=== PATIENT | male | born 1970 | race Caucasian/White ===

== ENCOUNTER 2018-02-21 03:52 | Inpatient (IN) | payer MEDICAID, OTHER ==
[~2018-02-21] VITALS: Ht 175.3 cm; Wt 103.5 kg
[2018-02-21] MEDS ORDERED: MORPHINE SULFATE INJECTION 1 ML ONE ×2 (04:28→06:16)
[2018-02-21] MEDS ORDERED: SODIUM CHLORIDE 0.9% 1,000 ML IV ONE (04:30)
[2018-02-21] MEDS ORDERED: MORPHINE SULFATE 4 MG/ML SYR/VIAL IV ONE ×2 (04:30→06:15)
[2018-02-21] MEDS ORDERED: ONDANSETRON HCL 4 MG/2 ML VIAL IV ONE ×2 (04:30→06:15)
[2018-02-21 05:04] LABS: Basophils # (auto) 0.1 uL; Basophils % (auto) 0.9 % (0.0-2.0); Eosinophils # (auto) 0 uL; Eosinophils % (auto) 0.6 % (0.0-7.0); Hemoglobin 13.6 g/dL (13.5-17.5); Lymphocytes # (auto) 1.1 uL; Lymphocytes % (auto) 14.1 % (10.0-50.0); Monocytes # (auto) 0.4 uL; Monocytes % (auto) 4.5 % (0.0-12.0); Neutrophils # (auto) 6.3 uL; Neutrophils % (auto) 79.9 % (37.0-80.0); Nucleated Red Blood Cells % 0.1 %; Platelet Count (auto) 315 10^3/uL (140-450); Red Blood Cells 4.26 10^6/uL (4.5-5.90); Red Cell Distribution Width 13.7 % (11.8-14.3); White Blood Cell 7.9 10^3/uL (4.4-10.8)
[2018-02-21 05:15] LABS: Prothrombin Time 10.7 sec (9.27-12.13)
[2018-02-21 05:24] LABS: Alanine Aminotransferase 37 U/L (16-61); Albumin 3.8 g/dL (3.4-5.0); Alkaline Phosphatase 81 U/L (45-117); Amylase 49 U/L (25-115); Anion Gap 11 (5-15); Aspartate Aminotransferase 14 U/L (15-37); BUN/Creatinine Ratio 14.1; Bilirubin, Total 0.5 mg/dL (0.2-1.0); Blood Urea Nitrogen 11 mg/dL (7-18); Calcium 8.9 mg/dL (8.5-10.1); Carbon Dioxide 22 mmol/L (21-32); Chloride 104 mmol/L (98-107); GFR African American 138 mL/min; GFR Non-African American 114 mL/min; Glucose 215 mg/dL (74-106); Lipase 143 U/L (73-393); Magnesium 1.8 mg/dL (1.6-2.6); Potassium 3.5 mmol/L (3.5-5.1); Sodium 137 mmol/L (136-145); Total Protein 7.6 g/dL (6.4-8.2)
[2018-02-21 07:14] LABS: Urine WBC None Seen /hpf (0 - 3)
[2018-02-21 07:33] LABS: Urine Bacteria NONE SEEN /hpf (None Seen); Urine Blood Negative /uL (Negative); Urine Mucus FEW (None Seen); Urine Specific Gravity 1.021 (1.001-1.035)
[2018-02-21] MEDS ORDERED: LABETALOL HCL 5 MG/ML ML 20ML VIAL IV ONE (08:30)
[2018-02-21] MEDS ORDERED: ACETAMINOPHEN 325 MG TAB PO PRN (09:00)
[2018-02-21] MEDS ORDERED: TEMAZEPAM 15 MG CAP PO PRN (09:00)
[2018-02-21] MEDS ORDERED: cloNIDine HCL 0.1 MG TAB PO PRN (09:00)
[2018-02-21] MEDS ORDERED: NITROGLYCERIN 0.4 MG SL TAB SL PRN (09:00)
[2018-02-21] MEDS ORDERED: MORPHINE SULFATE 8mg/ml INJ SDV IV PRN (09:00)
[2018-02-21] MEDS ORDERED: DEXTROSE (50%) 50ML SYRG IV PRN (09:00)
[2018-02-21] MEDS: ONDANSETRON HCL 4 MG/2 ML VIAL IV PRN ×2 (09:13→14:59)
[2018-02-21] MEDS: DULoxetine HCL 30 MG CAP PO SCH (09:13)
[2018-02-21] MEDS: MULTIPLE VITAMIN TAB PO SCH (09:13)
[2018-02-21] MEDS: SODIUM CHLORIDE 0.9% 1,000 ML IV SCH ×2 (09:15→20:47)
[2018-02-21] MEDS: MORPHINE SULFATE 8mg/ml INJ SDV IV PRN ×3 (09:15→20:47)
[2018-02-21] MEDS ORDERED: PANTOPRAZOLE 40 MG/10 ML VIAL IV SCH (10:00)
[2018-02-21] MEDS: ACCU-CHEK COMFORT CURVE STRIP VI SCH ×3 (11:47→21:15)
[2018-02-21] MEDS: InsuLIN REG 1unit/0.01ml Soln (100units/ml) SC SCH ×3 (11:50→22:49)
[2018-02-21] MEDS ORDERED: PROMETHAZINE HCL 25 MG/ML 1ML ONE (12:15)
[2018-02-21] MEDS: PROMETHAZINE HCL 25 MG/ML 1ML IV PRN ×2 (12:46→20:47)
[2018-02-21 17:10] VITALS: BP 189/98
[2018-02-21 20:00] VITALS: BP 150/82
[2018-02-21] MEDS: PANTOPRAZOLE 40 MG/10 ML VIAL IV SCH (21:15)
[2018-02-21 22:00] VITALS: BP 150/82
[2018-02-21] MEDS ORDERED: FAMOTIDINE (10MG/ML) 2ML VL IV SCH (22:00)
[2018-02-22] VITALS (7 sets, daily range): BP systolic 136–154; BP diastolic 48–99
[2018-02-22] MEDS: MORPHINE SULFATE 8mg/ml INJ SDV IV PRN ×4 (02:13→21:22)
[2018-02-22] MEDS: ONDANSETRON HCL 4 MG/2 ML VIAL IV PRN ×4 (02:13→16:13)
[2018-02-22] MEDS: SODIUM CHLORIDE 0.9% 1,000 ML IV SCH ×3 (04:43→18:45)
[2018-02-22 06:49] LABS: Basophils # (auto) 0 uL; Basophils % (auto) 0.4 % (0.0-2.0); Eosinophils # (auto) 0.1 uL; Eosinophils % (auto) 1.2 % (0.0-7.0); Hematocrit 38.2 % (41.0-53.0); Hemoglobin 13.1 g/dL (13.5-17.5); Lymphocytes # (auto) 2.3 uL; Lymphocytes % (auto) 25.6 % (10.0-50.0); Mean Corpuscular Hemoglobin 32.2 pg (28.0-32.0); Mean Corpuscular Hgb Conc. 34.2 g/dL (32.0-36.0); Mean Corpuscular Volume 94.2 fL (80.0-100.0); Monocytes # (auto) 0.6 uL; Monocytes % (auto) 6.9 % (0.0-12.0); Neutrophils # (auto) 5.8 uL; Neutrophils % (auto) 65.9 % (37.0-80.0); Nucleated Red Blood Cells % 0.1 %; Platelet Count (auto) 292 10^3/uL (140-450); Red Blood Cells 4.05 10^6/uL (4.5-5.90); Red Cell Distribution Width 13.7 % (11.8-14.3); White Blood Cell 8.8 10^3/uL (4.4-10.8)
[2018-02-22 06:58] LABS: Potassium 3.1 mmol/L (3.5-5.1)
[2018-02-22] MEDS: ACCU-CHEK COMFORT CURVE STRIP VI SCH ×4 (06:59→21:22)
[2018-02-22] MEDS: InsuLIN REG 1unit/0.01ml Soln (100units/ml) SC SCH ×4 (06:59→21:33)
[2018-02-22 07:15] LABS: Albumin 3.2 g/dL (3.4-5.0); BUN/Creatinine Ratio 15.9; Bilirubin, Total 0.6 mg/dL (0.2-1.0); Calcium 8.3 mg/dL (8.5-10.1); Total Protein 6.9 g/dL (6.4-8.2)
[2018-02-22] MEDS ORDERED: IOHEXOL 300 MG/ML 100ML BOTTLE IJ ONE (09:48)
[2018-02-22] MEDS: DULoxetine HCL 30 MG CAP PO SCH (10:42)
[2018-02-22] MEDS: PANTOPRAZOLE 40 MG/10 ML VIAL IV SCH ×2 (10:42→21:22)
[2018-02-22] MEDS: MULTIPLE VITAMIN TAB PO SCH (10:42)
[2018-02-22] MEDS: POTASSIUM CHL 20MEQ/100ML 100 ML IV SCH ×2 (10:42→12:35)
[2018-02-22] MEDS: HYDROcodone-ACET 5/325MG TAB PO PRN ×2 (16:14→23:29)
[2018-02-23] MEDS: SODIUM CHLORIDE 0.9% 1,000 ML IV SCH ×2 (02:51→10:46)
[2018-02-23 05:15] VITALS: BP 142/86
[2018-02-23] MEDS: ACCU-CHEK COMFORT CURVE STRIP VI SCH ×2 (05:55→11:25)
[2018-02-23] MEDS: InsuLIN REG 1unit/0.01ml Soln (100units/ml) SC SCH ×2 (05:55→11:26)
[2018-02-23] MEDS: HYDROcodone-ACET 5/325MG TAB PO PRN ×2 (05:56→11:17)
[2018-02-23 06:37] LABS: Basophils # (auto) 0.1 uL; Basophils % (auto) 0.7 % (0.0-2.0); Eosinophils # (auto) 0.3 uL; Eosinophils % (auto) 3.7 % (0.0-7.0); Hematocrit 37.1 % (41.0-53.0); Hemoglobin 12.8 g/dL (13.5-17.5); Lymphocytes # (auto) 1.9 uL; Lymphocytes % (auto) 27.2 % (10.0-50.0); Mean Corpuscular Hemoglobin 32.2 pg (28.0-32.0); Mean Corpuscular Hgb Conc. 34.4 g/dL (32.0-36.0); Mean Corpuscular Volume 93.7 fL (80.0-100.0); Monocytes # (auto) 0.5 uL; Monocytes % (auto) 7.8 % (0.0-12.0); Neutrophils # (auto) 4.2 uL; Neutrophils % (auto) 60.6 % (37.0-80.0); Platelet Count (auto) 293 10^3/uL (140-450); Red Blood Cells 3.96 10^6/uL (4.5-5.90); Red Cell Distribution Width 13.6 % (11.8-14.3)
[2018-02-23 07:07] LABS: Albumin 3.3 g/dL (3.4-5.0); BUN/Creatinine Ratio 11.3; Bilirubin, Total 0.5 mg/dL (0.2-1.0); Calcium 8.2 mg/dL (8.5-10.1); Potassium 3.3 mmol/L (3.5-5.1); Total Protein 6.5 g/dL (6.4-8.2)
[2018-02-23 07:26] VITALS: BP 159/93
[2018-02-23 07:58] VITALS: BP 159/93
[2018-02-23] MEDS: PANTOPRAZOLE 40 MG/10 ML VIAL IV SCH (09:39)
[2018-02-23] MEDS: MULTIPLE VITAMIN TAB PO SCH (09:39)
[2018-02-23] MEDS: DULoxetine HCL 30 MG CAP PO SCH (09:39)
[2018-02-23] MEDS: POTASSIUM CHL 20MEQ/100ML 100 ML IV SCH ×2 (09:40→11:57)
[2018-02-23] MEDS: ONDANSETRON HCL 4 MG/2 ML VIAL IV PRN (11:18)
[2018-02-23 13:00] VITALS: BP 137/102
== END 2018-02-23 14:44 | disposition home or self-care (01) | DRG 241 ==
LOC: EDBD 03:52 → ER 03:52 → EDUNIT# 03:52 → TELE 03:53 → TELE-CENTR 13:20
PROVIDERS: ADMIT Internal Medicine; ATTEND Internal Medicine
DX: K29.71 Gastritis, unspecified, with bleeding (principal); E11.65 Type 2 diabetes mellitus with hyperglycemia; I10 Essential (primary) hypertension; K21.9 Gastro-esophageal reflux disease without esophagitis; E66.01 Morbid (severe) obesity due to excess calories; I25.2 Old myocardial infarction; Z80.8 Family history of malignant neoplasm of other organs or systems; E86.0 Dehydration; K57.30 Diverticulosis of large intestine without perforation or abscess without bleeding; I25.10 Atherosclerotic heart disease of native coronary artery without angina pectoris; I70.0 Atherosclerosis of aorta; Z53.29 Procedure and treatment not carried out because of patient's decision for other reasons; R10.9 Unspecified abdominal pain; D18.03 Hemangioma of intra-abdominal structures; F17.210 Nicotine dependence, cigarettes, uncomplicated; Z68.33 Body mass index [BMI] 33.0-33.9, adult; E44.1 Mild protein-calorie malnutrition; E88.09 Other disorders of plasma-protein metabolism, not elsewhere classified
CPT/HCPCS: 36415; 74176; 74177; 76705; 80053; 81001; 82150; 82962; 83036; 83690; 83735; 84443; 84484; 85025; 85610; 85730; 93005; 93306; 96361; 96374; 96375; 96376; C9113; J1815; J2270; J2405; J3480

== ENCOUNTER 2019-08-11 05:57 | Inpatient (IN) | payer MEDICAID ==
[~2019-08-11] VITALS: Ht 170.2 cm; Wt 88.2 kg
[2019-08-11] MEDS ORDERED: SODIUM CHLORIDE 0.9% 1,000 ML IV ONE (06:51)
[2019-08-11] MEDS ORDERED: SODIUM CHLORIDE 0.9% 500 ML IVB ONE (06:51)
[2019-08-11] MEDS ORDERED: HYDROmorphone HCL 2 MG/ML VL IV ONE (07:00)
[2019-08-11] MEDS ORDERED: PROMETHAZINE HCL 25 MG/ML 1ML IV PRN (07:00)
[2019-08-11 07:34] LABS: Basophils # (auto) 0 uL; Basophils % (auto) 0.3 % (0.0-2.0); Eosinophils # (auto) 0 uL; Hematocrit 42.1 % (41.0-53.0); Hemoglobin 14.1 g/dL (13.5-17.5); Lymphocytes # (auto) 1.7 uL; Lymphocytes % (auto) 16.6 % (10.0-50.0); Mean Corpuscular Hemoglobin 30.9 pg (28.0-32.0); Mean Corpuscular Hgb Conc. 33.4 g/dL (32.0-36.0); Mean Corpuscular Volume 92.5 fL (80.0-100.0); Monocytes # (auto) 0.5 uL; Monocytes % (auto) 4.4 % (0.0-12.0); Neutrophils # (auto) 8.2 uL; Neutrophils % (auto) 78.7 % (37.0-80.0); Nucleated Red Blood Cells % 0.1 %; Platelet Count (auto) 355 10^3/uL (140-450); Red Blood Cells 4.56 10^6/uL (4.5-5.90); Red Cell Distribution Width 13.8 % (11.8-14.3); White Blood Cell 10.4 10^3/uL (4.4-10.8)
[2019-08-11 07:43] LABS: Albumin 4.1 g/dL (3.4-5.0); Calcium 9.1 mg/dL (8.5-10.1); Potassium 3.3 mmol/L (3.5-5.1)
[2019-08-11 07:46] LABS: BUN/Creatinine Ratio 11.9; Bilirubin, Total 0.6 mg/dL (0.2-1.0); Total Protein 8.1 g/dL (6.4-8.2)
[2019-08-11 07:47] LABS: Magnesium 1.8 mg/dL (1.6-2.6)
[2019-08-11] MEDS ORDERED: MORPHINE SULF INJ 2 MG/ML SYRINGE 1ML IV PRN ×2 (10:30)
[2019-08-11] MEDS ORDERED: NITROGLYCERIN 0.4 MG SL TAB SL PRN (10:30)
[2019-08-11] MEDS ORDERED: DEXTROSE (50%) 50ML SYRG IV PRN (11:15)
[2019-08-11] MEDS: InsuLIN REG 1unit/0.01ml Soln (100units/ml) SC SCH ×3 (12:02→22:00)
[2019-08-11] MEDS: ACCU-CHEK COMFORT CURVE STRIP VI SCH ×3 (12:02→22:56)
[2019-08-11] MEDS: D5W/ SOD CHL 0.9%/KCL 20MEQ 1,000 ML IV SCH ×2 (12:03→20:30)
--- NOTE | 2019-08-11 12:37 | NUR ---
Telemetry admit from ER PALLAVIEMELY PEREZ admitted to Telemetry unit after SBAR received. Patient oriented to Aurora Bazzi primary RN, unit, room, bed, and unit policies regarding patient care and visiting hours. Patient now on continuous telemetry monitoring, tele box #56 and telemetry reading on arrival to unit is SR 69 bpm. Patient weighed by bed scale and encouraged to call if they need something. All questions and concerns addressed, patient verbalized understanding. Instructed patient on POC, fall precautions and to call for assistance as needed. Patient verbalized understanding. Fall precautions in place with bed in lowest locked position with x2 call light within reach. Will continue to monitor q1hr & PRN.
[2019-08-11] MEDS: ONDANSETRON HCL 4 MG/2 ML VIAL IV PRN ×2 (12:40→20:49)
[2019-08-11] MEDS ORDERED: TIZA4TAB9 PO (13:01)
[2019-08-11] MEDS ORDERED: IBUP800T24 PO (13:01)
[2019-08-11] MEDS ORDERED: ALPR1TAB2 PO (13:01)
[2019-08-11] MEDS ORDERED: MIRT1TAB38 PO (13:01)
[2019-08-11] MEDS ORDERED: GABA-339 PO (13:01)
[2019-08-11] MEDS ORDERED: PERCOT PO (13:01)
[2019-08-11] MEDS ORDERED: METH-532 PO (13:01)
[2019-08-11] MEDS ORDERED: OMEP20TA PO (13:01)
--- NOTE | 2019-08-11 13:22 | NUR ---
RE: pain management Patient reports ordered PRN pain medication is not managing his pain adequately. Notified Eusebio Lovett verbalized understanding. Order received and read back to verify.
[2019-08-11 13:53] VITALS: BP 164/103
[2019-08-11] MEDS: HYDROmorphone HCL 2 MG/ML VL IV PRN ×3 (13:53→22:30)
[2019-08-11] MEDS: metroNIDAZOLE 500MG/100ML 100 ML IV SCH ×2 (13:59→22:43)
--- NOTE | 2019-08-11 14:32 | NUR ---
was at bedside - Dr. Young
[2019-08-11] MEDS ORDERED: IOHEXOL 300 MG/ML 100ML BOTTLE IJ ONE (14:44)
--- NOTE | 2019-08-11 14:50 | NUR ---
Patient off unit via wheelchair to radiology Respirations even and unlabored, no distress noted.
[2019-08-11 16:59] VITALS: BP 154/92
--- NOTE | 2019-08-11 18:40 | NUR ---
Closing note Patient resting in bed with even and unlabored respirations, no distress noted. Fall precautions in place with call light within reach.
--- NOTE | 2019-08-11 18:41 | NUR ---
Faxed request for medical record per MD order.
--- NOTE | 2019-08-11 18:50 | NUR ---
Paged hospitalist RE: order for sleeping medication Patient requesting sleeping medication. No PRN sleeping medication ordered at this time. Paged Davin Gonzalez N.P., to notify.
--- NOTE | 2019-08-11 19:12 | NUR ---
Care endorsed to IMANI Adame.
--- NOTE | 2019-08-11 19:40 | NUR ---
Opening Shift Note Assumed care of patient, awake, AAOx4 and ambulatory. On room air. No S/S of distress/SOB. Bed in lowest locked position, side rails up x2, call light within reach. Instructed on POC and to call for assist PRN, will continue to monitor for changes Q1hr and PRN.
[2019-08-11 20:00] VITALS: BP 166/92
[2019-08-11 22:00] VITALS: BP 166/92
--- NOTE | 2019-08-11 22:30 | NUR ---
PATIENT REQUESTING SLEEPING PILL JULIANNE ALVA MD. RETURNED CALL, RECEIVED NEW ORDER FOR TEMAZEPAM 15MG PO PRN/HS. RBO AND VERIFIED. WILL CARRY OUT ORDERS AND CONTINUE CARE.
[2019-08-11] MEDS: DOCUSATE SOD 100 MG CAP PO SCH (22:43)
[2019-08-12] VITALS (7 sets, daily range): BP systolic 141–166; BP diastolic 83–97
[2019-08-12] MEDS: HYDROmorphone HCL 2 MG/ML VL IV PRN ×5 (04:04→21:45)
[2019-08-12] MEDS: ONDANSETRON HCL 4 MG/2 ML VIAL IV PRN ×4 (04:05→21:45)
[2019-08-12 05:34] LABS: Basophils # (auto) 0.1 uL; Basophils % (auto) 0.7 % (0.0-2.0); Eosinophils # (auto) 0.1 uL; Eosinophils % (auto) 1.3 % (0.0-7.0); Hematocrit 35.6 % (41.0-53.0); Hemoglobin 12.5 g/dL (13.5-17.5); Lymphocytes # (auto) 2.5 uL; Lymphocytes % (auto) 34.5 % (10.0-50.0); Mean Corpuscular Hemoglobin 31.4 pg (28.0-32.0); Mean Corpuscular Volume 89.8 fL (80.0-100.0); Monocytes # (auto) 0.5 uL; Monocytes % (auto) 6.4 % (0.0-12.0); Neutrophils # (auto) 4.1 uL; Neutrophils % (auto) 57.1 % (37.0-80.0); Nucleated Red Blood Cells % 0.1 %; Platelet Count (auto) 304 10^3/uL (140-450); Red Blood Cells 3.97 10^6/uL (4.5-5.90); Red Cell Distribution Width 13.6 % (11.8-14.3); White Blood Cell 7.2 10^3/uL (4.4-10.8)
[2019-08-12 05:45] LABS: INR 1.09 (0.9-1.15); Partial Thromboplastin Time 30.9 sec (23.64-32.05)
[2019-08-12 05:50] LABS: Potassium 3.4 mmol/L (3.5-5.1)
[2019-08-12 06:02] LABS: Albumin 3.3 g/dL (3.4-5.0); BUN/Creatinine Ratio 10.6; Bilirubin, Total 0.6 mg/dL (0.2-1.0); Calcium 8.2 mg/dL (8.5-10.1); Total Protein 6.6 g/dL (6.4-8.2)
[2019-08-12] MEDS: metroNIDAZOLE 500MG/100ML 100 ML IV SCH ×3 (06:20→22:02)
[2019-08-12] MEDS: D5W/ SOD CHL 0.9%/KCL 20MEQ 1,000 ML IV SCH ×2 (06:21→13:17)
[2019-08-12] MEDS: InsuLIN REG 1unit/0.01ml Soln (100units/ml) SC SCH ×4 (06:21→22:00)
[2019-08-12] MEDS: ACCU-CHEK COMFORT CURVE STRIP VI SCH ×4 (06:21→22:03)
[2019-08-12] MEDS: DOCUSATE SOD 100 MG CAP PO SCH ×2 (10:08→22:02)
[2019-08-12] MEDS: LEVOFLOXACIN 500MG 100 ML IV SCH (10:09)
[2019-08-12] MEDS ORDERED: POTASSIUM CHL 20 Meq TABLET PO ONE (15:15)
[2019-08-12] MEDS: METHOCARBAMOL 500 MG TAB PO PRN (17:02)
--- NOTE | 2019-08-12 19:40 | NUR ---
Opening Shift Note Assumed care of patient, awake, AAOx4. No S/S of distress/SOB. C/O pain 05/12 to lower back. On room air and ambulatory. Bed in lowest locked position, side rails up x2, call light within reach. Instructed on POC and to call for assist PRN, will continue to monitor for changes Q1hr and PRN.
[2019-08-12] MEDS: TEMAZEPAM 15 MG CAP PO PRN (22:03)
[2019-08-13] VITALS (7 sets, daily range): BP systolic 131–166; BP diastolic 77–99
[2019-08-13] MEDS: HYDROmorphone HCL 2 MG/ML VL IV PRN ×5 (01:45→23:35)
[2019-08-13] MEDS: ONDANSETRON HCL 4 MG/2 ML VIAL IV PRN ×5 (01:45→23:42)
[2019-08-13] MEDS: D5W/ SOD CHL 0.9%/KCL 20MEQ 1,000 ML IV SCH ×3 (02:10→14:13)
[2019-08-13] MEDS: ACCU-CHEK COMFORT CURVE STRIP VI SCH ×4 (06:41→21:13)
[2019-08-13] MEDS: metroNIDAZOLE 500MG/100ML 100 ML IV SCH ×3 (06:41→21:11)
[2019-08-13] MEDS: InsuLIN REG 1unit/0.01ml Soln (100units/ml) SC SCH ×4 (06:42→21:12)
[2019-08-13] MEDS: DOCUSATE SOD 100 MG CAP PO SCH ×2 (10:25→21:11)
[2019-08-13] MEDS: LEVOFLOXACIN 500MG 100 ML IV SCH (10:25)
[2019-08-13] MEDS ORDERED: HYOSCYAMINE SULF 0.125 MG ODT TAB PO PRN (14:00)
--- NOTE | 2019-08-13 20:10 | NUR ---
Rounds Patient awake and alert. No S/S of distress/SOB, denies pain at this time, medicated earlier with norco for back pain. Will continue to monitor changes q1hr and PRN.
--- NOTE | 2019-08-13 22:20 | NUR ---
Rounds Pt ambulating to room walked around unite,gait steady, no sob.
[2019-08-13] MEDS: TEMAZEPAM 15 MG CAP PO PRN (22:57)
[2019-08-14] MEDS: ONDANSETRON HCL 4 MG/2 ML VIAL IV PRN ×4 (03:38→17:03)
[2019-08-14] MEDS: HYDROmorphone HCL 2 MG/ML VL IV PRN ×4 (03:38→17:04)
[2019-08-14] MEDS: D5W/ SOD CHL 0.9%/KCL 20MEQ 1,000 ML IV SCH ×2 (03:50→18:30)
--- NOTE | 2019-08-14 04:42 | NUR ---
IV insertion IV access obtained, via clean sterile technique by inserting 22 gauge catheter at LEFT HAND after 2 attempt(s). IV secured properly. No trauma to site. Patient tolerated well. NOTE:
--- NOTE | 2019-08-14 04:43 | NUR ---
IV removal IV to left ac DC'd due to leaking with clean sterile technique, catheter fully intact. Pressure dressing applied to site. Patient tolerated well. NOTE:
[2019-08-14 05:00] VITALS: BP 150/92
[2019-08-14] MEDS: METHOCARBAMOL 500 MG TAB PO PRN (05:15)
[2019-08-14] MEDS: metroNIDAZOLE 500MG/100ML 100 ML IV SCH ×2 (05:16→14:06)
[2019-08-14] MEDS: ACCU-CHEK COMFORT CURVE STRIP VI SCH ×3 (05:16→17:18)
[2019-08-14] MEDS: InsuLIN REG 1unit/0.01ml Soln (100units/ml) SC SCH ×3 (05:22→17:00)
--- NOTE | 2019-08-14 07:20 | NUR ---
Endorsed care to Nicolas RN Pt resting, comfortable, no distress.
[2019-08-14 08:00] VITALS: BP 144/57
[2019-08-14 08:30] VITALS: BP 146/92
[2019-08-14 09:10] VITALS: BP 144/87
[2019-08-14] MEDS: DOCUSATE SOD 100 MG CAP PO SCH (11:04)
[2019-08-14] MEDS: LEVOFLOXACIN 500MG 100 ML IV SCH (11:04)
--- NOTE | 2019-08-14 11:50 | NUR ---
Nutrition Assessment Notes please see attached link for complete assessment Est. Needs based on ABW (77 kg): 4083-1397 kcal (23-25 kcal/kgBW), 77-84 gms pro (1.0-1.1 gms/kgBW). Will continue to monitor pertinent labs and reassess nutrient need prn Addendum: 08/14/19 at [address] Amended: Links added.
[2019-08-14 16:51] VITALS: BP 147/85
[2019-08-14 17:52] VITALS: BP 146/92
--- NOTE | 2019-08-14 19:47 | NUR ---
Patient Discharged Completed the discharge instruction per protocol. Reviewed the instructions to the patient, he stated he understood and had no questions. He signed the signature page as well as the clothing record. Removed his IV and Telemetry box which was cleaned and returned. The patient was discharged via wheel chair and escorted out through the ER entrance at 1905hrs.
== END 2019-08-14 19:05 | disposition home or self-care (01) ==
LOC: EDBD 05:57 → ER 06:02 → TELE 06:03 → TELE-WESTW 12:41
PROVIDERS: ADMIT Nurse Practitioner Acute Care; ATTEND Internal Medicine
DX: K75.9 Inflammatory liver disease, unspecified (principal); E11.42 Type 2 diabetes mellitus with diabetic polyneuropathy; E66.9 Obesity, unspecified; R16.0 Hepatomegaly, not elsewhere classified; F41.9 Anxiety disorder, unspecified; E87.6 Hypokalemia; M54.9 Dorsalgia, unspecified; K59.00 Constipation, unspecified; G89.4 Chronic pain syndrome; F17.210 Nicotine dependence, cigarettes, uncomplicated; I25.10 Atherosclerotic heart disease of native coronary artery without angina pectoris; K57.30 Diverticulosis of large intestine without perforation or abscess without bleeding; Z95.5 Presence of coronary angioplasty implant and graft; Z79.4 Long term (current) use of insulin; I25.2 Old myocardial infarction; Z79.84 Long term (current) use of oral hypoglycemic drugs; Z68.30 Body mass index [BMI] 30.0-30.9, adult
CPT/HCPCS: 36415; 74176; 74177; 80053; 82150; 82378; 82962; 83036; 83615; 83690; 83735; 84484; 85025; 85610; 85730; 96361; 96374; 96375; G0378; J1815; J1956; J2405; J3490

== ENCOUNTER 2019-09-13 23:42 | Emergency (ER) | payer MEDICAID ==
[~2019-09-13] VITALS: Ht 172.7 cm; Wt 104.3 kg
[~2019-09-13 23:42] MED LIST: ALPR1TAB2 PO; GABA-339 PO; METH-532 PO; MIRT1TAB38 PO; OMEP20TA PO; PERCOT PO; TIZA4TAB9 PO
[2019-09-13 23:45] VITALS: BP 182/87
[2019-09-14 01:42] LABS: Basophils # (auto) 0.1 uL; Basophils % (auto) 0.6 % (0.0-2.0); Eosinophils # (auto) 0 uL; Eosinophils % (auto) 0.1 % (0.0-7.0); Hematocrit 40.4 % (41.0-53.0); Hemoglobin 13.9 g/dL (13.5-17.5); Lymphocytes % (auto) 9.4 % (10.0-50.0); Mean Corpuscular Hemoglobin 30.8 pg (28.0-32.0); Mean Corpuscular Hgb Conc. 34.4 g/dL (32.0-36.0); Mean Corpuscular Volume 89.4 fL (80.0-100.0); Monocytes # (auto) 0.3 uL; Monocytes % (auto) 3.1 % (0.0-12.0); Neutrophils # (auto) 9.3 uL; Neutrophils % (auto) 86.8 % (37.0-80.0); Platelet Count (auto) 501 10^3/uL (140-450); Red Blood Cells 4.52 10^6/uL (4.5-5.90); Red Cell Distribution Width 14.2 % (11.8-14.3); White Blood Cell 10.7 10^3/uL (4.4-10.8)
[2019-09-14 01:56] LABS: Alanine Aminotransferase 34 U/L (16-61); Albumin 3.4 g/dL (3.4-5.0); Anion Gap 9 (5-15); Aspartate Aminotransferase 13 U/L (15-37); BUN/Creatinine Ratio 14.6; Blood Urea Nitrogen 12 mg/dL (7-18); Calcium 8.4 mg/dL (8.5-10.1); Carbon Dioxide 25 mmol/L (21-32); Chloride 105 mmol/L (98-107); GFR African American 130 mL/min; GFR Non-African American 107 mL/min; Glucose 134 mg/dL (74-106); Potassium 3.7 mmol/L (3.5-5.1); Sodium 139 mmol/L (136-145)
[2019-09-14 01:59] LABS: Alkaline Phosphatase 103 U/L (45-117); Bilirubin, Total 0.3 mg/dL (0.2-1.0)
== END 2019-09-14 03:50 | disposition left against medical advice (07) ==
LOC: EDBD 23:42 → ER 23:42
DX: R10.9 Unspecified abdominal pain (principal); Z53.21 Procedure and treatment not carried out due to patient leaving prior to being seen by health care provider
CPT/HCPCS: 36415; 80053; 84484; 85025

== ENCOUNTER 2019-10-09 19:02 | Emergency (ER) | payer MEDICAID ==
[~2019-10-09] VITALS: Ht 167.6 cm; Wt 86.2 kg
[2019-10-09] MEDS ORDERED: SODIUM CHLORIDE 0.9% 1,000 ML IV ONE (19:17)
[2019-10-09] MEDS ORDERED: PROCHLORPERAZINE EDISYLATE 5 MG/ML 2ML VIAL IV ONE (19:30)
[2019-10-09 19:59] LABS: Basophils # (auto) 0.1 uL; Basophils % (auto) 0.7 % (0.0-2.0); Eosinophils # (auto) 0 uL; Eosinophils % (auto) 0.4 % (0.0-7.0); Hematocrit 40.2 % (41.0-53.0); Hemoglobin 13.6 g/dL (13.5-17.5); Lymphocytes % (auto) 24.6 % (10.0-50.0); Mean Corpuscular Hemoglobin 31.3 pg (28.0-32.0); Mean Corpuscular Hgb Conc. 33.7 g/dL (32.0-36.0); Mean Corpuscular Volume 92.7 fL (80.0-100.0); Monocytes # (auto) 0.4 uL; Monocytes % (auto) 4.4 % (0.0-12.0); Neutrophils # (auto) 5.7 uL; Neutrophils % (auto) 69.9 % (37.0-80.0); Platelet Count (auto) 413 10^3/uL (140-450); Red Blood Cells 4.33 10^6/uL (4.5-5.90); Red Cell Distribution Width 14.7 % (11.8-14.3); White Blood Cell 8.2 10^3/uL (4.4-10.8)
[2019-10-09 20:00] VITALS: BP 135/86
[2019-10-09 20:24] LABS: Albumin 3.6 g/dL (3.4-5.0); BUN/Creatinine Ratio 10.1; Calcium 8.3 mg/dL (8.5-10.1); Potassium 3.1 mmol/L (3.5-5.1)
[2019-10-09 20:25] LABS: Bilirubin, Total 0.2 mg/dL (0.2-1.0); Total Protein 8.1 g/dL (6.4-8.2)
== END 2019-10-09 21:06 | disposition home or self-care (01) ==
LOC: ER 19:02 → EDBD 19:02 → ER 21:06
DX: F10.129 Alcohol abuse with intoxication, unspecified (principal); R11.2 Nausea with vomiting, unspecified; E11.9 Type 2 diabetes mellitus without complications; E78.5 Hyperlipidemia, unspecified; I10 Essential (primary) hypertension; I25.2 Old myocardial infarction; F17.210 Nicotine dependence, cigarettes, uncomplicated; Z98.61 Coronary angioplasty status; Z79.899 Other long term (current) drug therapy; Y90.8 Blood alcohol level of 240 mg/100 ml or more
CPT/HCPCS: 36415; 80053; 80320; 85025; 96361; 96374; 99283; J0780; J7030

== ENCOUNTER 2021-05-08 15:11 | Inpatient (IN) | payer MEDICAID ==
[~2021-05-08] VITALS: Ht 165.1 cm; Wt 108.8 kg
[2021-05-08] MEDS ORDERED: EPINEPHrine HCL 1 MG/10 ML SYRG ONE (15:25)
[2021-05-08] MEDS ORDERED: SODIUM BICARBONATE 8.4% INJ 50ML SYRINGE ONE (15:25)
[2021-05-08] MEDS ORDERED: EPINEPHrine HCL 250 ML IV SCH (15:30)
[2021-05-08] MEDS ORDERED: SODIUM BICARB 50ML SYR 100 ML in SODIUM CHLORIDE 0.9% 1,000 ML IV ONE (15:30)
[2021-05-08] MEDS ORDERED: NOREPINEPHRINE 8 MG/250ML KIT 250 ML IV ONE (15:42)
[2021-05-08] MEDS: NOREPINEPHRINE 8 MG/250ML KIT 250 ML IV SCH (15:45)
[2021-05-08 16:47] LABS: Alcohol, Urine < 3.0 mg/dL (0-10); Amphetamine Screen, Urine NEGATIVE (NEGATIVE); Barbiturate Scree,Urine POSITIVE (NEGATIVE); Benzodiazephine Screen, Urine NEGATIVE (NEGATIVE); Cannabinoid Screen, Urine NEGATIVE (NEGATIVE); Cocaine Screen, Urine NEGATIVE (NEGATIVE); Opiate Scree,Urine NEGATIVE (NEGATIVE); Phencyclidine Screen, Urine NEGATIVE (NEGATIVE)
[2021-05-08 17:08] LABS: Urine Bacteria NONE SEEN /hpf (None Seen); Urine Blood Negative /uL (Negative); Urine Mucus FEW (None Seen); Urine Specific Gravity 1.018 (1.001-1.035); Urine Sperm PRESENT /hpf (None Seen); Urine WBC 33 /hpf (0 - 3)
[2021-05-08 17:25] LABS: Hemoglobin 10.7 g/dL (13.5-17.5)
[2021-05-08 17:27] LABS: Hematocrit 32.6 % (41.0-53.0); Mean Corpuscular Hemoglobin 30.7 pg (28.0-32.0); Mean Corpuscular Hgb Conc. 32.8 g/dL (32.0-36.0); Mean Corpuscular Volume 93.5 fL (80.0-100.0); Red Blood Cells 3.48 10^6/uL (4.5-5.90); Red Cell Distribution Width 14.2 % (11.8-14.3)
[2021-05-08 17:38] LABS: Basophils % (manual) 0 (0.0-2.0); Blast Cells 0; Metamyelocytes % 0; Promyelocytes % 0; Reactive Lymphocytes 0; White Blood Cell 38.1 10^3/uL (4.4-10.8)
[2021-05-08 17:40] LABS: Acetaminophen < 2.0 ug/mL (10-30); Albumin 2.5 g/dL (3.4-5.0); Anion Gap 12 (5-15); Blood Urea Nitrogen 15 mg/dL (7-18); Calcium 8.9 mg/dL (8.5-10.1); Carbon Dioxide 21 mmol/L (21-32); Chloride 104 mmol/L (98-107); Glucose 358 mg/dL (74-106); Magnesium 3.1 mg/dL (1.6-2.6); Salicylate < 1.7 mg/dL (2.8-20.0); Sodium 137 mmol/L (136-145)
[2021-05-08 17:42] LABS: Alanine Aminotransferase 418 U/L (16-61); Aspartate Aminotransferase 417 U/L (15-37); BUN/Creatinine Ratio 10.4; Blood Alcohol < 3.0 mg/dL (0-5); GFR African American 67 mL/min; GFR Non-African American 56 mL/min
[2021-05-08 17:47] LABS: Alkaline Phosphatase 155 U/L (45-117); Bilirubin, Total 0.2 mg/dL (0.2-1.0); Total Protein 6.3 g/dL (6.4-8.2)
[2021-05-08 18:09] LABS: Potassium 6.3 mmol/L (3.5-5.1)
[2021-05-08 18:11] LABS: INR 1.21 (0.9-1.15)
[2021-05-08] MEDS ORDERED: InsuLIN REG 1unit/0.01ml Soln (100units/ml) IV ONE (18:15)
[2021-05-08] MEDS ORDERED: ceFAZolin 1GM/50ML 50 ML IV ONE (18:15)
[2021-05-08] MEDS ORDERED: SODIUM ZIRCONIUM CYCL 10 GM PAK PO ONE (18:15)
[2021-05-08] MEDS ORDERED: DEXTROSE (25%) 10 ML SYRG IV ONE (18:15)
[2021-05-08] MEDS ORDERED: ALBUTEROL SULF 2.5 MG/0.5ML(0.5%) NEB SOLN NEB ONE (18:15)
[2021-05-08 18:30] LABS: Band Neutrophils % (manual) 8; Eosinophils % (manual) 3 (0-7); Lymphocytes % (manual) 11 (10.0-50.0); Monocytes % (manual) 1 (0-12); Myelocytes % 4
[2021-05-08 18:55] VITALS: BP 109/82
[2021-05-08] MEDS: MIDAZOLAM DRIP 50 mg/50mL 50 ML IV SCH (20:08)
[2021-05-08 20:09] LABS: Sodium Urine 114 mmol/L (40-220)
[2021-05-08 20:10] LABS: Creatinine, Urine 125 mg/dL (30.0-125.0)
[2021-05-08 20:45] VITALS: BP 100/63
[2021-05-08 21:48] VITALS: BP 81/50
[2021-05-08 22:00] VITALS: BP 170/113
[2021-05-08] MEDS ORDERED: CALCIUM CHLOR(10%) 100MG/ML 10ML SYRINGE IV ONE (22:25)
[2021-05-08] MEDS ORDERED: EPINEPHrine HCL 1 MG/10 ML SYRG IV ONE (22:25)
[2021-05-08] MEDS ORDERED: SODIUM BICARBONATE 8.4% INJ 50ML SYRINGE IV ONE (22:26)
[2021-05-08] MEDS ORDERED: NALOXONE HCL 1MG/ML 2ML SYRINGE IV ONE (22:26)
[2021-05-08 23:52] VITALS: BP 99/61
[2021-05-09] VITALS (42 sets, daily range): BP systolic 76–121; BP diastolic 32–79
[2021-05-09] MEDS: SODIUM ZIRCONIUM CYCL 10 GM PAK PO SCH ×4 (01:01→17:56)
[2021-05-09 01:21] LABS: Hematocrit 36.4 % (41.0-53.0); Hemoglobin 12.5 g/dL (13.5-17.5); Mean Corpuscular Hemoglobin 31.2 pg (28.0-32.0); Mean Corpuscular Hgb Conc. 34.2 g/dL (32.0-36.0); Mean Corpuscular Volume 91.1 fL (80.0-100.0); Red Cell Distribution Width 13.9 % (11.8-14.3); White Blood Cell 25.2 10^3/uL (4.4-10.8)
[2021-05-09 01:55] LABS: Basophils % (manual) 0 (0.0-2.0); Blast Cells 0; Eosinophils % (manual) 0 (0-7); Metamyelocytes % 0; Myelocytes % 0; Promyelocytes % 0; Reactive Lymphocytes 0
[2021-05-09] MEDS ORDERED: ASPirin 325 MG TAB PO ONE (02:00)
[2021-05-09 02:47] LABS: Band Neutrophils % (manual) 20; Lymphocytes % (manual) 2 (10.0-50.0); Monocytes % (manual) 1 (0-12)
[2021-05-09] MEDS ORDERED: SODIUM BICARBONATE 8.4% INJ 50ML SYRINGE ONE ×2 (03:04→03:22)
[2021-05-09] MEDS: SODIUM BICARB 50ML SYR 100 ML in SODIUM CHLORIDE 0.9% 1,000 ML IV SCH ×2 (03:29→13:24)
[2021-05-09 03:45] LABS: BUN/Creatinine Ratio 10.3; Calcium 8.5 mg/dL (8.5-10.1); Potassium 5.3 mmol/L (3.5-5.1)
[2021-05-09] MEDS ORDERED: MORPHINE SULFATE INJECTION 2 MG/2 ML SYRG IV PRN (04:15)
[2021-05-09 07:09] LABS: Basophils # (auto) 0 10 ^3/uL (0-0.2); Basophils % (auto) 0.1 % (0.0-2.0); Eosinophils # (auto) 0 10 ^3/uL (0-0.8); Hematocrit 37.5 % (41.0-53.0); Hemoglobin 12.4 g/dL (13.5-17.5); Lymphocytes # (auto) 0.5 10 ^3/uL (0.4-5.4); Lymphocytes % (auto) 2.1 % (10.0-50.0); Mean Corpuscular Hemoglobin 30.1 pg (28.0-32.0); Mean Corpuscular Hgb Conc. 32.9 g/dL (32.0-36.0); Mean Corpuscular Volume 91.3 fL (80.0-100.0); Monocytes # (auto) 0.7 10 ^3/uL (0-1.3); Monocytes % (auto) 2.8 % (0.0-12.0); Neutrophils # (auto) 22.4 10 ^3/uL (1.6-8.6); Red Blood Cells 4.11 10^6/uL (4.5-5.90); White Blood Cell 23.6 10^3/uL (4.4-10.8)
[2021-05-09 07:27] LABS: BUN/Creatinine Ratio 10.2; Calcium 8.5 mg/dL (8.5-10.1); Potassium 5.1 mmol/L (3.5-5.1)
[2021-05-09] MEDS: ALBUTEROL SULF 2.5 MG/0.5ML(0.5%) NEB SOLN NEB SCH ×3 (07:30→18:09)
[2021-05-09] MEDS ORDERED: ENOXAPARIN SOD 30 MG/0.3 ML SYRINGE IV ONE (12:15)
[2021-05-09] MEDS: NOREPINEPHRINE 8 MG/250ML KIT 250 ML IV SCH (13:25)
[2021-05-09] MEDS: MIDAZOLAM DRIP 50 mg/50mL 50 ML IV SCH (17:30)
[2021-05-09] MEDS: ENOXAPARIN SOD 60 MG/0.6 ML SYRINGE SC SCH (21:51)
[2021-05-09] MEDS ORDERED: SODIUM BICARBONATE 8.4 % INJ 50ML VIAL IV ONE (23:43)
[2021-05-10] VITALS (94 sets, daily range): BP systolic 0–133; BP diastolic 0–77
[2021-05-10] MEDS: ALBUTEROL SULF 2.5 MG/0.5ML(0.5%) NEB SOLN NEB SCH ×4 (00:24→18:05)
[2021-05-10] MEDS: SODIUM BICARB 50ML SYR 100 ML in SODIUM CHLORIDE 0.9% 1,000 ML IV SCH (00:46)
[2021-05-10] MEDS: SODIUM ZIRCONIUM CYCL 10 GM PAK PO SCH ×2 (03:00→11:00)
[2021-05-10 04:44] LABS: Phosphorus 4.7 mg/dL (2.5-4.90); Uric Acid 9.6 mg/dL (3.5-7.2)
[2021-05-10 04:55] LABS: Basophils # (auto) 0.1 10 ^3/uL (0-0.2); Basophils % (auto) 0.5 % (0.0-2.0); Eosinophils # (auto) 0.2 10 ^3/uL (0-0.8); Eosinophils % (auto) 1.4 % (0.0-7.0); Hematocrit 33.1 % (41.0-53.0); Hemoglobin 11.1 g/dL (13.5-17.5); Lymphocytes # (auto) 1.2 10 ^3/uL (0.4-5.4); Lymphocytes % (auto) 9.9 % (10.0-50.0); Mean Corpuscular Hemoglobin 30.8 pg (28.0-32.0); Mean Corpuscular Hgb Conc. 33.5 g/dL (32.0-36.0); Mean Corpuscular Volume 92.1 fL (80.0-100.0); Monocytes # (auto) 0.7 10 ^3/uL (0-1.3); Monocytes % (auto) 5.2 % (0.0-12.0); Neutrophils # (auto) 10.5 10 ^3/uL (1.6-8.6); Red Blood Cells 3.59 10^6/uL (4.5-5.90); Red Cell Distribution Width 14.5 % (11.8-14.3); White Blood Cell 12.6 10^3/uL (4.4-10.8)
[2021-05-10 05:30] LABS: Albumin 2.1 g/dL (3.4-5.0); Calcium 7.9 mg/dL (8.5-10.1); Potassium 4.3 mmol/L (3.5-5.1)
[2021-05-10 05:33] LABS: BUN/Creatinine Ratio 9.4; Bilirubin, Total 0.3 mg/dL (0.2-1.0)
[2021-05-10] MEDS: ENOXAPARIN SOD 60 MG/0.6 ML SYRINGE SC SCH ×2 (10:26→22:00)
[2021-05-10] MEDS ORDERED: SOD CHL 0.45% 1,000 ML IV SCH (13:15)
[2021-05-10] MEDS ORDERED: ASPirin 81 mg TAB PO ONE (13:30)
[2021-05-10] MEDS ORDERED: PANTOPRAZOLE 40 MG/10 ML VIAL INJ IV ONE (13:30)
[2021-05-10] MEDS: NOREPINEPHRINE 8 MG/250ML KIT 250 ML IV SCH (14:28)
[2021-05-10 16:24] LABS: Cholesterol 204 mg/dL (< 200); HDL Cholesterol 31 mg/dL (40-59); Triglycerides 464 mg/dL (< 150)
[2021-05-10] MEDS ORDERED: LORazepam 2MG/ML-1ML VIAL IV PRN (19:30)
[2021-05-10] MEDS ORDERED: MORPHINE SULFATE INJECTION 2 MG/2 ML SYRG IV PRN (19:30)
[2021-05-10] MEDS ORDERED: ATORVASTATIN 20 MG TAB PO SCH (22:00)
[2021-05-11] MEDS ORDERED: LORazepam 2MG/ML-1ML VIAL ONE (02:31)
[2021-05-11] MEDS ORDERED: PANTOPRAZOLE 40 MG/10 ML VIAL INJ IV SCH (10:00)
[2021-05-11] MEDS ORDERED: ASPirin 81 mg TAB PO SCH (10:00)
[2021-05-11 14:53] LABS: Hepatitis A Ab IgM Negative; Hepatitis B Core IgM Negative; Hepatitis B Surface Antigen Negative (Negative); Hepatitis C Antibody Negative (Negative)
== END 2021-05-10 22:12 | DRG 133 ==
LOC: EDBD 15:11 → ER 15:11 → TELE 05-09 04:20 → ICU WEST 05-09 16:49
PROVIDERS: ADMIT Internal Medicine; ATTEND Internal Medicine
PROC: 5A1945Z Respiratory Ventilation, 24-96 Consecutive Hours (ICD-10-PCS; principal; 2021-05-09)
PROC: 0BH17EZ Insertion of Endotracheal Airway into Trachea, Via Natural or Artificial Opening (ICD-10-PCS; 2021-05-09)
PROC: 5A12012 Performance of Cardiac Output, Single, Manual (ICD-10-PCS; 2021-05-09)
DX: J96.00 Acute respiratory failure, unspecified whether with hypoxia or hypercapnia (principal); G93.6 Cerebral edema; I46.9 Cardiac arrest, cause unspecified; I21.4 Non-ST elevation (NSTEMI) myocardial infarction; N17.0 Acute kidney failure with tubular necrosis; G93.1 Anoxic brain damage, not elsewhere classified; G93.41 Metabolic encephalopathy; Z20.822 Contact with and (suspected) exposure to COVID-19; E87.4 Mixed disorder of acid-base balance; E11.65 Type 2 diabetes mellitus with hyperglycemia; E87.5 Hyperkalemia; E78.5 Hyperlipidemia, unspecified; E86.1 Hypovolemia; E87.6 Hypokalemia; F12.90 Cannabis use, unspecified, uncomplicated; F17.210 Nicotine dependence, cigarettes, uncomplicated; G89.4 Chronic pain syndrome; G93.89 Other specified disorders of brain; I10 Essential (primary) hypertension; I25.10 Atherosclerotic heart disease of native coronary artery without angina pectoris; I47.2 Ventricular tachycardia; K21.9 Gastro-esophageal reflux disease without esophagitis; R94.01 Abnormal electroencephalogram [EEG]; R57.0 Cardiogenic shock; S22.39XA Fracture of one rib, unspecified side, initial encounter for closed fracture; Z79.891 Long term (current) use of opiate analgesic; Z83.3 Family history of diabetes mellitus; I25.2 Old myocardial infarction; Z79.899 Other long term (current) drug therapy; Z79.01 Long term (current) use of anticoagulants; Z95.5 Presence of coronary angioplasty implant and graft
CPT/HCPCS: 36415; 36556; 36600; 70450; 71045; 71250; 74176; 76775; 80048; 80053; 80061; 80074; 80307; 80320; 80329; 81001; 82306; 82570; 82805; 83036; 83735; 83970; 84100; 84156; 84300; 84484; 84550; 85007; 85025; 85027; 85610; 85730; 86850; 86900; 86901; 87070; 87077; 87081; 87186; 87205; 87426; 93005; 93306; 94002; 94003; 94640; 95819; 99291; 99292; C9113; G0378; J0171; J0690; J1815; J2250